=== PATIENT | male | born 1970 | race African-American/Black ===

== ENCOUNTER 2020-10-13 03:21 | Emergency (ER) | payer OTHER ==
[~2020-10-13] VITALS: Ht 177.8 cm; Wt 97.0 kg
[2020-10-13] MEDS ORDERED: ONDANSETRON HCL 4MG/2ML INJ IV STA (03:53)
[2020-10-13] MEDS ORDERED: LEVETIRACETAM 500MG PREMIX 100 ML IV ONE (04:00)
[2020-10-13] MEDS ORDERED: SODIUM CHLORIDE 0.9% 1,000 ML IV ONE (04:00)
[2020-10-13 04:20] LABS: BASOPHILS % 1.1 % (0.0-2.0); EOSINOPHILS % 1.9 % (0.0-5.0); HEMATOCRIT. 46.3 % (42.0-52.0); HEMOGLOBIN. 15.3 g/dL (14.0-18.0); LYMPHOCYTES % 21.9 % (20.0-50.0); MEAN CORPUSCULAR VOLUME 90.7 fL (80.0-94.0); MEAN PLATELET VOLUME 10.3 fl (7.4-10.4); MONOCYTES % 7.8 % (2.0-8.0); NEUTROPHILS % 67.3 % (40.0-76.0); PLATELET 244 x1000/uL (130-400); RED CELL DISTRIBUTION WIDTH 12.9 % (11.6-14.6)
[2020-10-13 04:27] LABS: CHLORIDE 104 mEq/L (98-107)
[2020-10-13] MEDS ORDERED: KEPP500 MT (04:53)
[2020-10-13 05:20] VITALS: BP 117/79
== END 2020-10-13 05:22 | disposition home or self-care (01) ==
LOC: ER 03:21
DX: R56.9 Unspecified convulsions (principal); F12.10 Cannabis abuse, uncomplicated
CPT/HCPCS: 36415; 80053; 85025; 93005; 96365; 96375; 99284; J1953; J2405; J7030